=== PATIENT | male | born 1985 | race African-American/Black ===

== ENCOUNTER 2016-03-02 14:09 | Emergency (ER) | payer OTHER ==
[~2016-03-02] VITALS: Ht 165.1 cm; Wt 91.2 kg
[2016-03-02 14:16] VITALS: BP 140/92
[2016-03-02] MEDS ORDERED: TIZANIDINE HCL4 MG PO (15:20)
[2016-03-02] MEDS ORDERED: NAPROSYN500 MG PO (15:20)
== END 2016-03-02 16:06 | disposition home or self-care (01) ==
LOC: ER 14:09
DX: M75.52 Bursitis of left shoulder (principal); Z91.040 Latex allergy status; F10.99 Alcohol use, unspecified with unspecified alcohol-induced disorder